=== PATIENT | female | born 1995 | race Caucasian/White ===

== ENCOUNTER 2020-12-18 10:55 | Emergency (ER) | payer OTHER, SELFPAY ==
[2020-12-18 11:02] VITALS: BP 117/85; PULSE 102; RESP 16; TEMP 36.6; O2SAT 99; BMI 19.8
--- NOTE | 2020-12-18 11:04 | W.ED.ANIMALB ---
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 Patient states they were preparing the cat for surgery and states it was a feral cat with unknown immunization status when it bit and scratched her repeatedly to her right forearm. She states she irrigated the wounds. She has not been vaccinated previously for rabies. Tetanus is not UTD. complaint: animal bite Onset (ago): hour(s) Animal: cat Description of animal: wild animal and immunizations unknown Mechanism: bite and scratch Location - Extremities: Right: forearm Context: provoked Associated symptoms: Reports no associated symptoms; Deny chills or fever(s) Treatments prior to arrival: irrigation Related Data: Patient tetanus UTD: No Review of Systems Const: Denies: fever(s), chills, body aches, fatigue or malaise Skin/Breast: Reports: other (cat bite/scratches R forearm) Neuro: Denies: numbness in extremities or sensory changes Physical Exam Const: COMMON NORMALS: no acute distress, average body habitus, patient oriented x3, no limitations, healthy appearing, alert and well nourished Extremity: NARRATIVE EXTREMITY EXAM: several small punctate bite hwang and scratches to R forearm-none require repair; no redness, swelling, drainage, or streaking noted; full painless ROM of all digits and wrist GENERAL: Yes normal exam except as noted Neuro: COMMON NORMALS: patient oriented x3, moves all extremities, no focal motor deficits and no sensory deficits noted SENSORIUM/ORIENTATION: Yes alert Skin: NARRATIVE SKIN EXAM: see extremity for pertinent skin findings Course Vital Signs: Vital signs: Vital Signs Temperature 97.8 F 12/18/20 11:02 Pulse Rate 102 H 12/18/20 11:02 Respiratory Rate 16 12/18/20 11:02 Blood Pressure 117/85 12/18/20 11:02 Pulse Oximetry 99 12/18/20 11:02 MDM - Animal Bite MDM Narrative: Medical decision making narrative: Patient stated on rabies PEP. Will be placed on Augmentin. Tetanus updated. Discharge Plan Discharge Patient Disposition: Home Clinical Impression: Cat bite of right forearm Qualifiers: Encounter type: initial encounter Qualified Code(s): S51.851A - Open bite of right forearm, initial encounter Condition: Stable Prescriptions: New Augmentin 875-125 mg tablet 1 tab PO Q12H 7 Days Qty: 14 RF: 0 Discharge Orders: Discharge ED (Routine); Ordered 12/18/20 Ordered By: Mirella Pedro Patient Instructions: Rabies Vaccine (Injection), Rabies Immune Globulin (Injection), Animal Bite (ED), Rabies (ED) Activity Restrictions/Additional Instructions: As we discussed fill your antibiotics and get started on them immediately. You have received paperwork on dates to receive your further immunizations on days 3, 7 and 14. You need to seek medical reevaluation if you begin noticing severe redness, swelling, or drainage to the wounds, severe pain, fevers, or red streaking up your arm. Coding Level of Care Code ED Specialty Therapist for [facility] Exam Expanded Problem Focused
[2020-12-18] MEDS: tetanus-diphtheria tox (adult) 0.5 mL SDV IM (11:22)
[2020-12-18] MEDS: rabies vaccine 2.5 unit SDV IM (11:27)
[2020-12-18] MEDS: rabies IG 300 unit/mL SDV 1 mL 1200 UNIT INFILTRATI (11:57)
[2020-12-18 12:16] VITALS: BP 124/76; PULSE 90; RESP 16; O2SAT 100
== END 2020-12-18 12:18 | disposition home or self-care (01) ==
PROVIDERS: Emergency Provider Physician Assistant
DX: S51.851A Open bite of right forearm, initial encounter (principal); W55.01XA Bitten by cat, initial encounter; Z20.3 Contact with and (suspected) exposure to rabies; Z29.14 Encounter for prophylactic rabies immune globulin; Z23 Encounter for immunization
CPT/HCPCS: 90375; 90471; 90675; 90714; 96372; 99283